=== PATIENT | female | born 1965 | race Caucasian/White ===

== ENCOUNTER 2019-08-28 14:41 | Outpatient (CLI) | payer BC ==
[2019-08-28 14:58] LABS: BASOPHILS # (AUTO) 0.1 10^3/uL (0.0-0.1); BASOPHILS % (AUTO) 0.9 %; EOSINOPHILS # (AUTO) 0.4 10^3/uL (0.0-0.7); EOSINOPHILS % (AUTO) 5.1 %; HGB - HEMOGLOBIN 14.7 g/dL (12.0-16.0); LYMPHOCYTES # (AUTO) 2.3 10^3/uL (1.5-3.5); LYMPHOCYTES % (AUTO) 28.1 %; MEAN CORPUSCULAR HEMOGLOBIN 29.8 pg (27.0-31.0); MEAN CORPUSCULAR HGB CONC 33.7 g/dL (32.0-36.0); MEAN CORPUSCULAR VOLUME 88.3 fL (81.0-99.0); MEAN PLATELET VOLUME 10.8 fL (7.9-10.8); MONOCYTES # (AUTO) 0.5 10^3/uL (0.0-1.0); MONOCYTES % (AUTO) 6.4 %; NEUTROPHILS # (AUTO) 4.8 10^3/uL (1.5-6.6); NEUTROPHILS % (AUTO) 59.3 %; PLT - PLATELET COUNT 277 10^3/uL (130-450); RED BLOOD COUNT 4.94 10^6/uL (4.20-5.40); RED CELL DISTRIBUTION WIDTH 11.9 % (12.0-15.0); WHITE BLOOD COUNT 8.1 x10^3/uL (4.8-10.8)
[2019-08-28 15:10] LABS: ALBUMIN 4.3 g/dL (3.2-5.5); ALBUMIN/GLOBULIN RATIO 1.2 (1.0-2.2); BILIRUBIN,TOTAL 0.7 mg/dL (0.2-1.0); CALCIUM 9.4 mg/dL (8.5-10.3); CREATININE 0.8 mg/dL (0.4-1.0); TOTAL PROTEIN 7.8 g/dL (6.7-8.2)
[2019-08-28 15:36] LABS: THYROID STIMULATING HORMONE 2.31 uIU/mL (0.34-5.60)
[2019-08-28 15:38] LABS: FREE T4 (FREE THYROXINE) 1.07 ng/dL (0.58-1.64)
--- NOTE | 2019-08-28 21:54 | XRAY Report ---
Reason: BACK PAIN,HERNIATED LUMBAR DISC Procedure Date: 08/28/2019 Accession Number: [id number] / [id number] Procedure: XR - Lumbar Spine Complete CPT Code: Final Report FULL RESULT: EXAM: LUMBOSACRAL SPINE RADIOGRAPHY. EXAM DATE: 08/28/2019 03:22 PM. CLINICAL HISTORY: 2 weeks of low back pain. COMPARISONS: None. TECHNIQUE: 4 views. FINDINGS: AP, lateral and both obliques are submitted. No acute fracture or focal bone destruction. Lumbar vertebral body heights are maintained. Approximately 5-8 degrees of lumbar levoscoliosis. Minimal leftward lateral L3 on L4 subluxation. No evidence for other spondylolysis or spondylolisthesis. Intact SI joints. Mild to moderate disk space narrowing at L3-L4. Minimal degenerative disk space narrowing at the remaining lumbar levels. Minimal multilevel anterior marginal spurring. Intact SI joints. Nonobstructive bowel gas pattern. IMPRESSION: 1. No acute fracture or dislocation. 2. Mild lumbar levoscoliosis. 3. Minimal leftward lateral L3 on L4 subluxation. 4. No other evidence for spondylolisthesis or spondylolysis on the oblique projections. 5. Multilevel degenerative disk space narrowing, most prominent at L3-L4. RADIA
== END 2019-08-28 14:42 | disposition home or self-care (01) ==
LOC: LAB 14:41 → DI 14:42
PROVIDERS: ATTEND Family Medicine
DX: M51.36 Other intervertebral disc degeneration, lumbar region (principal); M99.13 Subluxation complex (vertebral) of lumbar region; Z00.00 Encounter for general adult medical examination without abnormal findings; E07.9 Disorder of thyroid, unspecified; M41.9 Scoliosis, unspecified
CPT/HCPCS: 36415; 72110; 80053; 84439; 84443; 84481; 85025

== ENCOUNTER 2021-04-27 20:35 | Emergency (ER) | payer BC ==
[2021-04-27 20:59] LABS: BASOPHILS # (AUTO) 0.1 10^3/uL (0.0-0.1); BASOPHILS % (AUTO) 0.9 %; EOSINOPHILS # (AUTO) 0.1 10^3/uL (0.0-0.7); EOSINOPHILS % (AUTO) 1.7 %; HCT - HEMATOCRIT 46.2 % (37.0-47.0); HGB - HEMOGLOBIN 15.4 g/dL (12.0-16.0); LYMPHOCYTES # (AUTO) 1.4 10^3/uL (1.5-3.5); MEAN CORPUSCULAR HEMOGLOBIN 29.6 pg (27.0-31.0); MEAN CORPUSCULAR HGB CONC 33.3 g/dL (32.0-36.0); MEAN CORPUSCULAR VOLUME 88.7 fL (81.0-99.0); MEAN PLATELET VOLUME 11.1 fL (7.9-10.8); MONOCYTES # (AUTO) 0.6 10^3/uL (0.0-1.0); MONOCYTES % (AUTO) 6.8 %; NEUTROPHILS # (AUTO) 5.9 10^3/uL (1.5-6.6); NEUTROPHILS % (AUTO) 73.5 %; PLT - PLATELET COUNT 260 10^3/uL (130-450); RED BLOOD COUNT 5.21 10^6/uL (4.20-5.40); RED CELL DISTRIBUTION WIDTH 12.2 % (12.0-15.0); WHITE BLOOD COUNT 8.1 x10^3/uL (4.8-10.8)
[2021-04-27 21:15] LABS: ALBUMIN 4.5 g/dL (3.2-5.5); ALBUMIN/GLOBULIN RATIO 1.2 (1.0-2.2); BILIRUBIN,TOTAL 2.2 mg/dL (0.2-1.0); CALCIUM 9.5 mg/dL (8.5-10.3); CREATININE 0.7 mg/dL (0.4-1.0); POTASSIUM 3.7 mmol/L (3.5-5.0); TOTAL PROTEIN 8.2 g/dL (6.7-8.2)
--- NOTE | 2021-04-27 21:20 | XRAY Report ---
PROCEDURE: Chest 1 View X-Ray INDICATIONS: Chest pain TECHNIQUE: One view of the chest was acquired. COMPARISON: None. FINDINGS: Surgical changes and devices: None. Lungs and pleura: No pleural effusions or pneumothorax. Lungs are clear. Mediastinum: Mediastinal contours appear normal. Heart size is normal. Bones and chest wall: No suspicious bony lesions. Overlying soft tissues appear unremarkable. IMPRESSION: No acute cardiopulmonary abnormality. Reviewed by: Ousmane Laws MD on 04/27/2021 9:19 PM [facility] Approved by: Ousmane Laws MD on 04/27/2021 9:19 PM [facility] Station ID: [id number]
--- NOTE | 2021-04-27 21:50 | ED Physician Documentation ---
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 No: Fever, Vomiting, Diarrhea, Constipation Similar symptoms before: Work up / diagnostics (US, blood tests) Recently seen: Clinic - Additional information Additional information: c/o RUQ and epigastric pain that radiates around right flank to back. She had an episode 1 week ago that was self-limited, reoccurred yesterday and has been waxing and waning since yesterday. She took a tylenol #3 prior to coming to ED and she feels this reduced the pain significantly. Patient recently established with a new PMD and as part of establishing with the new practice, routine blood tests were ordered. Her LFTs were found to have abnormalities and thus an outpatient US was performed (last week) and this revealed gallstones as well as hepatic cysts. Review of Systems Constitutional: reports: Reviewed and negative Cardiac: reports: Reviewed and negative Respiratory: reports: Reviewed and negative GI: reports: Abdominal Pain, Nausea, Vomiting. denies: Constipation, Diarrhea : denies: Dysuria, Frequency PD PAST MEDICAL HISTORY - Past Medical History Past Medical History: No - Past Surgical History Past Surgical History: No - Present Medications Home Medications: Ambulatory Orders Medication Instructions Recorded Confirmed Levothyroxine [Synthroid] 1 tab DAILY 04/27/21 04/27/21 Ondansetron Odt [Zofran Odt] 4 mg TL Q6H PRN #14 tablet 04/28/21 - Allergies Allergies/Adverse Reactions: Allergies Allergy/AdvReac Type Severity Reaction Status Date / Time hydrocodone Allergy Hallucinati Verified 04/27/21 20:45 ons PD ED PE NORMAL - Vitals Vital signs reviewed: Yes - General General: Alert and oriented X 3, No acute distress, Well developed/nourished - Cardiac Cardiac: RRR, No murmur - Respiratory Respiratory: No respiratory distress, Clear bilaterally - Abdomen Abdomen: Normal bowel sounds, Soft, Non tender, Non distended - Back Back: No CVA TTP - Derm Derm: Normal color, Warm and dry, No rash Results - Vitals Vitals: Oxygen O2 Source Room air - Labs Labs: Laboratory Tests 04/27/21 04/27/21 04/27/21 20:53 20:53 20:53 WBC 8.1 RBC 5.21 Hgb 15.4 Hct 46.2 MCV 88.7 MCH 29.6 MCHC 33.3 RDW 12.2 Plt Count 260 MPV 11.1 H Neut # (Auto) 5.9 Lymph # (Auto) 1.4 L [place] # (Auto) 0.6 Eos # (Auto) 0.1 Baso # (Auto) 0.1 Absolute Nucleated RBC 0.00 Nucleated RBC % 0.0 Sodium 138 Potassium 3.7 Chloride 100 L Carbon Dioxide 26 Anion Gap 12.0 BUN 17 Creatinine 0.7 Estimated GFR (MDRD) 87 L Glucose 130 H Calcium 9.5 Total Bilirubin 2.2 H AST 172 H ALT 259 H Alkaline Phosphatase 106 Troponin I High Sens 3.2 Total Protein 8.2 Albumin 4.5 Globulin 3.7 Albumin/Globulin Ratio 1.2 Lipase 58 H - Rads (name of study) RUQ US Radiology: Prelim report reviewed, See rad report PD MEDICAL DECISION MAKING - ED course Complexity details: reviewed results, re-evaluated patient, considered differential, d/w patient ED course: presents with symptoms s/o biliary colic. she is afebrile with a normal WBC. 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 Her LFTs are elevated including bilirubin, AST, and ALT, as well as minimal elevation in lipase. She is able to show me her recent outpatient test results and at that time (10 days ago) she had a normal bilirubin with AST 22 and ALT 46 (tonight she has 2.2 bilirubin, 172 AST, 259 ALT). Her US suggests GB sludge with borderline CBD diameter but no other concerning findings , such as pericholecystic fluid or GB wall thickening. Given her ongoing (during ED stay) pain control after just one dose of tylenol with codeine and that she is in NAD, appropriate for outpatient follow up with careful return precautions which were discussed carefully with her, as well as close follow up in outpatient setting for reevaluation even if improving. Departure - Departure Disposition: 01 Home, Self Care Clinical Impression: Biliary colic Condition: Good Instructions: ED Gallstone W Biliary Colic Follow-Up: ERNIE CAMARA MD [Primary Care Provider] - Prescriptions: Ondansetron Odt [Zofran Odt] 4 mg TL Q6H PRN #14 tablet PRN Reason: Nausea / Vomiting Comments: Your liver function tests tonight are abnormal. Bilirubin 2.2 AST 172 ALT 259 Your pancreatic enzyme is minimally elevated Lipase 58 You do not need admission to the hospital at this time but you should be reevaluated as soon as can be arranged with either your primary care provider or a specialist (such as general surgery or gastroenterology). If your symptoms worsen and are not controlled with the antinausea medication (electronically submitted to [facility] in [place]) and/or the pain medication you have at home (tylenol with codeine, you should return to the emergency department for reevaluation. Return to the ER if you develop other concerning signs/symptoms such as fever, blood in vomit or stool, jaundice (yellow eyes/skin) Discharge Date/Time: 04/28/21 00:31
--- NOTE | 2021-04-27 23:05 | Ultrasound Report ---
PROCEDURE: Abdomen Limited INDICATIONS: epigastric pain, elev liver enz, eval biliary TECHNIQUE: Real-time focused scanning was performed of the abdomen, with image documentation. COMPARISON: None FINDINGS: Multiple hepatic cysts are present. Diffuse increased echogenicity within the hepatic pare nchyma. Gallbladder sludge is present. No evidence of cholecystitis. The common duct is at upper limi ts of normal at 9 mm. Pancreas is partially obscured. Right kidney is grossly unremarkable. IMPRESSION: Common bile duct is at upper limits of normal. Finding could be further assessed with nonemergent MRC P, if clinically indicated. Reviewed by: Lory Benjamin MD on 04/27/2021 11:04 PM PST Approved by: Lory Benjamin MD on 04/27/2021 11:04 PM PST Station ID: [id number]
[2021-04-28] MEDS ORDERED: ONDANSETRON ODT 4 MG Prepack 2 TL STA (00:17)
[2021-04-28 00:19] VITALS: BP 145/100
== END 2021-04-28 00:31 | disposition home or self-care (01) ==
LOC: ED 20:35
DX: K80.50 Calculus of bile duct without cholangitis or cholecystitis without obstruction (principal); R07.9 Chest pain, unspecified
CPT/HCPCS: 36415; 80053; 83690; 84484; 85025; 93005; 99284

== ENCOUNTER 2023-10-22 13:28 | Emergency (ER) | payer BC ==
[2023-10-22 13:56] LABS: BASOPHILS # (AUTO) 0.1 10^3/uL (0.0-0.1); BASOPHILS % (AUTO) 0.7 %; EOSINOPHILS # (AUTO) 0.1 10^3/uL (0.0-0.7); HCT - HEMATOCRIT 44.3 % (37.0-47.0); HGB - HEMOGLOBIN 14.5 g/dL (12.0-16.0); LYMPHOCYTES % (AUTO) 21.8 %; MEAN CORPUSCULAR HEMOGLOBIN 28.9 pg (27.0-31.0); MEAN CORPUSCULAR HGB CONC 32.7 g/dL (32.0-36.0); MEAN CORPUSCULAR VOLUME 88.2 fL (81.0-99.0); MEAN PLATELET VOLUME 10.9 fL (7.9-10.8); MONOCYTES # (AUTO) 0.6 10^3/uL (0.0-1.0); NEUTROPHILS # (AUTO) 6.3 10^3/uL (1.5-6.6); NEUTROPHILS % (AUTO) 69.3 %; PLT - PLATELET COUNT 260 10^3/uL (130-450); RED BLOOD COUNT 5.02 10^6/uL (4.20-5.40); RED CELL DISTRIBUTION WIDTH 12.3 % (12.0-15.0); WHITE BLOOD COUNT 9.1 x10^3/uL (4.8-10.8)
[2023-10-22 14:10] LABS: ALBUMIN 4.5 g/dL (3.2-5.5); ALBUMIN/GLOBULIN RATIO 1.3 (1.0-2.2); BILIRUBIN,TOTAL 1.3 mg/dL (0.2-1.0); CALCIUM 10.3 mg/dL (8.5-10.3); CREATININE 0.8 mg/dL (0.6-1.3); POTASSIUM 3.8 mmol/L (3.5-4.5)
--- NOTE | 2023-10-22 14:52 | ED Physician Documentation ---
PD HPI ABD PAIN - Stated complaint Stated Complaint: ABD PX - Chief complaint Chief Complaint: Abd Pain - History obtained from History obtained from: Patient - History of Present Illness Timing - onset: How many days ago (2-3 days mild to moderate upper abd pain, that has increased considerably today.) Timing - duration: Days Timing - details: Gradual onset, Still present Quality: Cramping, Aching, Pain Location: RUQ, Epigastric Radiation: Upper back Improved by: No: Laying still Worsened by: Eating, Breathing, Palpation Associated symptoms: Nausea. No: Fever, Vomiting, Diarrhea, Constipation, M zeus, Hematochezia, Dysuria Similar symptoms before: Diagnosis (similar episode 2010 and seen in ER with labs showing mild elevateion LFTs and lipase 58. PResumed small sludge CBD and passed. Has mild upper abd pains lasting minutes to an hour or so in the past.) Recently seen: Not recently seen Review of Systems Constitutional: denies: Fever, Chills Nose: denies: Rhinorrhea / runny nose, Congestion Throat: denies: Sore throat Cardiac: denies: Chest pain / pressure Respiratory: denies: Cough GI: reports: Abdominal Pain, Nausea. denies: Constipation, Diarrhea, Bloody / black stool PD PAST MEDICAL HISTORY - Past Medical History Past Medical History: Yes Cardiovascular: High cholesterol Respiratory: None Neuro: None Endocrine/Autoimmune: HyPOthyroidism GI: None CORRAL BOSS: None : None HEENT: None Psych: None Musculoskeletal: None Derm: None - Past Surgical History Past Surgical History: No General: Appendectomy /CORRAL BOSS: Hysterectomy, Breast implants - Present Medications Home Medications: Ambulatory Orders Medication Instructions Recorded Confirmed Levothyroxine [Synthroid] 1 tab DAILY 04/27/21 10/22/23 Ondansetron Odt [Zofran Odt] 4 mg TL Q6H PRN #14 tablet 04/28/21 10/22/23 HYDROmorphone [Dilaudid] 2 mg PO Q4H PRN #20 tablet 10/22/23 Meloxicam [Mobic] 7.5 mg PO BID 10 Days #20 tablet 10/22/23 Omeprazole 1 cap PO PRN PRN 10/22/23 10/22/23 Ondansetron Odt [Zofran] 4 mg TL Q6H PRN #20 tablet 10/22/23 - Allergies Allergies/Adverse Reactions: Allergies Allergy/AdvReac Type Severity Reaction Status Date / Time hydrocodone Allergy Hallucinati Verified 10/22/23 13:32 ons - Living Situation Living Situation: reports: With spouse/s.o. Living Arrangement: reports: At home - Social History Does the pt smoke?: No Smoking Status: Never smoker Does the pt drink ETOH?: Yes ETOH Use: Wine (2-3 glasses nightly. ) Does the pt have substance abuse?: No - Immunizations Immunizations are current?: Yes - POLST Patient has POLST: No PD ED PE NORMAL - Vitals Vital signs reviewed: Yes - General General: Alert and oriented X 3, Well developed/nourished, Other (Appears notably uncomfortable with upper abd pain. ) - HEENT HEENT: PERRL, EOMI (nonicteric) - Neck Neck: Supple, no meningeal sign, No adenopathy - Cardiac Cardiac: RRR, No murmur - Respiratory Respiratory: No respiratory distress, Clear bilaterally - Abdomen Abdomen: Normal bowel sounds, Soft, Non distended, No organomegaly, Other (very tender upper abd centrally and RUQ, with local guarding and percussion tenderness. Lower abd not tender. ) - Back Back: No CVA TTP - Derm Derm: Normal color, Warm and dry - Extremities Extremities: No edema, No calf tenderness / cord - Neuro Neuro: Alert and oriented X 3, No motor deficit, Normal speech Results - Vitals Vitals: Vital Signs - 24 hr 10/22/23 10/22/23 10/22/23 13:32 15:35 17:00 Temperature 36.5 C Heart Rate 78 78 77 Respiratory 16 14 16 Rate Blood Pressure 150/90 H 165/97 H 160/81 H O2 Saturation 99 93 98 Oxygen O2 Source Room air - Labs Labs: Laboratory Tests 10/22/23 10/22/23 10/22/23 13:43 13:43 14:58 WBC 9.1 RBC 5.02 Hgb 14.5 Hct 44.3 MCV 88.2 MCH 28.9 MCHC 32.7 RDW 12.3 Plt Count 260 MPV 10.9 H Neut # (Auto) 6.3 Lymph # (Auto) 2.0 [place] # (Auto) 0.6 Eos # (Auto) 0.1 Baso # (Auto) 0.1 Absolute Nucleated RBC 0.00 Nucleated RBC % 0.0 Sodium 138 Potassium 3.8 Chloride 104 Carbon Dioxide 24 Anion Gap 10.0 BUN 19 Creatinine 0.8 Estimated GFR (MDRD) 74 L Glucose 131 H Calcium 10.3 Total Bilirubin 1.3 H AST 118 H ALT 131 H Alkaline Phosphatase 94 Total Protein 8.0 Albumin 4.5 Globulin 3.5 Albumin/Globulin Ratio 1.3 Lipase 4532 H Urine Color YELLOW Urine Clarity CLEAR Urine pH 7.0 Ur Specific [place] 1.020 Urine Protein NEGATIVE Urine Glucose (UA) NEGATIVE Urine Ketones 15 H Urine Occult Blood NEGATIVE Urine Nitrite NEGATIVE Urine Bilirubin NEGATIVE Urine Urobilinogen 0.2 (NORMAL) Ur Leukocyte Esterase NEGATIVE Ur Microscopic Review NOT INDICATED Urine Culture Comments NOT INDICATED - Rads (name of study) upper abd US Relevant Findings:: Other (US tech states normal GB wall thickness without surounding fluid. Some sludge and small sotnes in GB. None at neck. CBD 9 mm, upper end of normal and similar to 2011 study. no CBD stones. fatty liver, else nromal. ) PD Medical Decision Making - ED course Complexity details: reviewed results (Lipase markedly elevated in 4000s. LFTs mildly elevated in 200 range. Alk phos normal. U/S does not show any cholecystic swelling nor wall thickening. Sludge/small stones noted. CBD upper end normal a t 9 mm and similar to US from 2020. Appears primarily acute pancreatitis. ), re- evaluated patient (pain and nausera much improved with IV fluids and meds. Recheck abd much less tender. She would prefer going home and trying outpt meds/clear liquid diet. To return if symptoms not controlled with meds. ), considered differential (upper abd pain abruptly with nausea. Had similar related to gallstones/sludge in the past. Dx 3 years ago. Has had some pain epiosdes interim lasting just briefly, not needing presentation for care. Today much worse. Consider biliary colic, CBD obstruction, cholecystitis, pancreatitis, etc. ), d/w patient Departure - Departure Disposition: 01 Home, Self Care Clinical Impression: Acute upper abdominal pain Pancreatitis Qualifiers: Chronicity: acute Pancreatitis type: unspecified pancreatitis type Acute pancreatitis complication: unspecified Qualified Code(s): K85.90 - Acute pancreatitis without necrosis or infection, unspecified Condition: Stable Record reviewed to determine appropriate education?: Yes Instructions: ED Pancreatitis Prescriptions: HYDROmorphone [Dilaudid] 2 mg PO Q4H PRN #20 tablet PRN Reason: Pain Meloxicam [Mobic] 7.5 mg PO BID 10 Days #20 tablet Ondansetron Odt [Zofran] 4 mg TL Q6H PRN #20 tablet PRN Reason: Nausea / Vomiting Comments: Your blood tests show inflammation of the pancreas (acute pancreatitis). There is some inflammation of the liver. The ultrasound did not show any gallbladder inflammation or swelling. There is some sludge and stones in the gallbladder which has been present on previous ultrasound as well. No indication of an acute gallbladder infection. The common bile duct was also not enlarged compared to your prior ultrasound and is at the upper limits of normal. No signs of sludge or stones in the common bile duct. The upshot of all that means it looks to be primarily pancreatitis. This can be from irritation from some medications. It could be from alcohol use. It could have been a brief sludging of the common bile duct with back pressuring to the pancreas and then the common bile duct cleared. At this point would treat the pancreatitis with clear liquid diet for a day or 2 and no fatty or greasy foods as that would stimulate the pancreas a bit more. Stay well-hydrated however. Use a combination of anti-inflammatories. I wrote for a prescription called meloxicam. This is longer lasting single have to take it twice a day. To that add Tylenol 500 to 650 mg every 4-6 hours if needed for pain. To that add Dilaudid/hydromorphone every 4 hours if needed for pain. Ondansetron if needed for nausea. Recheck if not improving well over the next several days. Follow-up with your primary care for recheck of the blood tests and also how you are doing. Recheck in the next several days or later this week if they are able to get you. Otherwise you can recheck at the walk-in clinic or back to the ER if you are not resolving well. I sent your prescriptions to [facility] pharmacy as they are open till 7 PM tonight. Return to the ER if your symptoms are not well-managed with oral medication. I am prescribing a short course of narcotic pain medication for you. These are potentially dangerous and addictive medications that should be used carefully. These medications may constipate you. Take an [id number] stool softener such as docusate twice daily with plenty of water while taking these medications. If you go 24 hours without a bowel movement, take [id number] MiraLAX, per package instructions. Do not drink or drive while taking these medications. If you received narcotic or sedating medications while in the emergency department do not drive for 24 hours. Store this medication in a safe, secure place and out of reach of children. It is a violation of federal law to give or sell this medication to another person or to use in a manner other than prescribed. The ED will not refill narcotic prescriptions, including prescriptions lost or stolen. You can dispose of unwanted medications at the [facility]'s office or at several pharmacies such as [facility]. Forms: PCP List Discharge Date/Time: 10/22/23 17:42
[2023-10-22 15:16] LABS: BILIRUBIN,URINE NEGATIVE (NEGATIVE); GLUCOSE, URINE (UA) NEGATIVE (NEGATIVE); KETONES,URINE (UA) 15 mg/dL (NEGATIVE); LEUKOCYTE ESTERASE, URINE NEGATIVE (NEGATIVE); NITRITE,URINE NEGATIVE (NEGATIVE); OCCULT BLOOD,URINE NEGATIVE (NEGATIVE); PROTEIN,URINE NEGATIVE (NEGATIVE); UROBILINOGEN,URINE 0.2 (NORMAL) E.U./dL (NORMAL)
[2023-10-22 15:19] LABS: CLARITY,URINE CLEAR (CLEAR)
[2023-10-22] MEDS: KETOROLAC 15 MG/ML VIAL IVP STA (15:41)
[2023-10-22] MEDS: HYDROmorphone 1 MG/ML CARPUJECT IVP STA ×2 (15:41→16:57)
[2023-10-22] MEDS: ONDANSETRON 4 MG/2 ML VIAL IVP STA (15:41)
[2023-10-22] MEDS: SODIUM CHLORIDE 0.9% 1,000 ML IV STA (15:50)
--- NOTE | 2023-10-22 17:17 | Ultrasound Report ---
PROCEDURE: Abdomen Limited INDICATIONS: RUQ pain TECHNIQUE: Real-time focused scanning was performed of the abdomen, with image documentation. COMPARISONS: Ultrasound April 27, 2021 FINDINGS: Liver: Increased liver echogenicity, commonly mild hepatic steatosis. A few hepatic cysts. Gallbladder: Sludge and several stones the largest measuring 9 mm. There is no pericholecystic fluid. No sonographic Medeiros's sign per firer automatic stoker. Gallbladder wall measures 0.3 mm Biliary ducts: Intrahepatic bile ducts are mildly dilated. Extrahepatic bile duct caliber measures 9 mm. Normal is 6-7 mm or less in diameter, or 10 mm or less post-cholecystectomy. Pancreas: Not well visualized due to overlying bowel gas. Right kidney: Normal in size and echotexture. Right kidney measures 10.8 cm long. No hydronephrosis or nephrolithiasis. No solid masses. No complex renal cystic lesions which require follow-up. IVC: Intrahepatic inferior vena cava is patent. Miscellaneous: No free abdominal fluid. IMPRESSION: Cholelithiasis with common biliary and intrahepatic biliary ductal dilation without evidence for acut e cholecystitis Hepatic steatosis. Reviewed by: Ottoniel Mckoy MD on 10/22/2023 4:16 PM [facility] Approved by: Ottoniel Mckoy MD on 10/22/2023 4:16 PM [facility] Station ID: [id number]
[2023-10-22 17:25] VITALS: BP 160/81; O2SAT 98
== END 2023-10-22 17:42 | disposition home or self-care (01) ==
LOC: ED 13:28
DX: K85.90 Acute pancreatitis without necrosis or infection, unspecified (principal); R79.89 Other specified abnormal findings of blood chemistry; K80.20 Calculus of gallbladder without cholecystitis without obstruction; K76.0 Fatty (change of) liver, not elsewhere classified
CPT/HCPCS: 36415; 76705; 80053; 81003; 83690; 85025; 96361; 96374; 96375; 99284; J1170; 81001; 87086